=== PATIENT | male | born 1970 | race African-American/Black ===

== ENCOUNTER 2023-07-07 17:19 | Inpatient (IN) | payer OTHER ==
[2023-07-07 18:29] VITALS: BMI 18.8
[2023-07-07] MEDS ORDERED: BENZONATATE 200 MG CAPSULE PO PRN (20:13)
[2023-07-07] MEDS ORDERED: ACETAMINOPHEN 325 MG TABLET (FP) PO PRN (20:13)
[2023-07-07] MEDS ORDERED: guaiFENesin 600 MG TABLET.ER (FP) PO PRN (20:13)
[2023-07-07] MEDS ORDERED: MAGNESIUM HYDROX 2400MG/30ML ORAL SUSPENSION 30 ML CUP PO PRN (20:13)
[2023-07-07] MEDS ORDERED: POLYETHYLENE GLYCOL (HEALTHYLAX) 3350 17 GM PACKET PO PRN (20:13)
[2023-07-07] MEDS ORDERED: P-EPHED 60MG/TRIPROLIDI 2.5MG TABLET PO PRN (20:13)
[2023-07-07] MEDS ORDERED: BISMUTH SUBSALICYLATE 524 MG/30 ML PO PRN (20:13)
[2023-07-07] MEDS ORDERED: BENZOCAINE/MENTHOL (CHLORASEPTIC ) LOZENGE MM PRN (20:13)
[2023-07-07] MEDS ORDERED: MAG HYDROX/AL HYDROX/SIMETH 30 ML UNIT-DOSE CUP PO PRN (20:13)
[2023-07-07] MEDS ORDERED: IBUPROFEN 400 MG TABLET (FP) PO PRN (20:13)
[2023-07-07] MEDS ORDERED: LOPERAMIDE HCL 2 MG CAPSULE PO PRN (20:13)
[2023-07-07] MEDS ORDERED: ONDANSETRON *ODT* 4 MG TABLET SL PRN (20:13)
[2023-07-07] MEDS ORDERED: DICYCLOMINE HCL 10 MG CAPSULE PO PRN (20:13)
[2023-07-07] MEDS ORDERED: IBUPROFEN 600 MG TABLET (FP) PO PRN (20:13)
[2023-07-07] MEDS: diazePAM 5 MG TABLET PO SCH (22:55)
[2023-07-07] MEDS: MELATONIN 5 MG TABLETS PO SCH (22:55)
[2023-07-07] MEDS: METHOCARBAMOL 500 MG TABLET PO PRN (22:55)
[2023-07-07] MEDS: THIAMINE HCL 100 MG TABLET (FP) PO SCH (22:56)
[2023-07-08] MEDS: PRENATAL VITAMINS W/ FOLIC ACID TABLET (FP) PO SCH (10:13)
[2023-07-08 11:49] LABS: HEMATOCRIT 35.4 % (35.4-49); HEMOGLOBIN 11.9 GM/dL (11.7-16.9); MCH 32.8 pg (25.7-33.7); MCHC 33.6 g/dl (32.0-35.9); MEAN CELL VOLUME 97.7 fl (80-96); MEAN PLT VOLUME 7.9 fl (7.5-11.1); PLATELET COUNT 169 10^3/uL (134-434); RBC 3.63 M/mm3 (4.00-5.60); RDW 14.4 % (11.9-15.9); WHITE BLOOD COUNT 4.8 K/mm3 (4.0-10.0)
[2023-07-08 11:52] LABS: POTASSIUM 3.6 mmol/L (3.5-5.1)
[2023-07-08 12:01] LABS: ALBUMIN 2.9 g/dl (3.4-5.0); BLOOD UREA NITROGEN 9.5 mg/dL (7-18); CALCIUM 8.8 mg/dL (8.5-10.1)
[2023-07-08 12:04] LABS: CREATININE 0.8 mg/dL (0.55-1.3)
[2023-07-08 12:06] LABS: BILIRUBIN,TOTAL 0.5 mg/dL (0.2-1); TOT PROT 8.9 g/dl (6.4-8.2)
[2023-07-08] MEDS ORDERED: PATIENT'S OWN MEDICATION (NON-FORMULARY) (Bictegrav/Emtricit/Tenofov Ala [Biktarvy 30-120- PO SCH (12:15)
[2023-07-08] MEDS: PATIENT'S OWN MEDICATION (NON-FORMULARY) (Bictegrav/Emtricit/Tenofov Ala [Biktarvy 30-120- PO SCH (13:27)
[2023-07-08] MEDS: BICTEGRAV/EMTRICIT/TENOFOV (BIKTARVY) 50-200-25 MG TABLET PO SCH (13:29)
[2023-07-08] MEDS: diazePAM 5 MG TABLET PO PRN (14:05)
[2023-07-08] MEDS: amLODIPine BESYLATE 5 MG TABLET (FP) PO SCH (15:38)
[2023-07-09] MEDS: diazePAM 5 MG TABLET PO SCH (05:57)
[2023-07-10] MEDS: diazePAM 5 MG TABLET PO SCH (05:45)
[2023-07-10 13:39] LABS: BLOOD UREA NITROGEN 11.3 mg/dL (7-18); CALCIUM 9.4 mg/dL (8.5-10.1)
[2023-07-10 13:42] LABS: CREATININE 0.7 mg/dL (0.55-1.3)
[2023-07-10 13:44] LABS: BILIRUBIN,TOTAL 0.4 mg/dL (0.2-1)
[2023-07-11] MEDS: diazePAM 5 MG TABLET PO ONE (06:04)
[2023-07-11 07:44] VITALS: RESP 16
[2023-07-11 09:24] VITALS: BP 143/89; PULSE 89; TEMP 97.5
== END 2023-07-11 10:31 | disposition home or self-care (01) | DRG 775 ==
LOC: YASAS 17:19 → Y6N 22:12
PROVIDERS: ADMIT Allergy & Immunology; ATTEND Surgery
PROC: HZ2ZZZZ Detoxification Services for Substance Abuse Treatment (ICD-10-PCS; principal; 2023-07-07)
DX: F10.230 Alcohol dependence with withdrawal, uncomplicated (principal); Z21 Asymptomatic human immunodeficiency virus [HIV] infection status; I10 Essential (primary) hypertension; R26.89 Other abnormalities of gait and mobility
CPT/HCPCS: 36415; 80053; 80305; 82947; 83036; 85027; 86780; 87635; 87811; 93005; 93010

== ENCOUNTER 2024-08-13 10:05 | Inpatient (IN) | payer OTHER ==
[2024-08-13 10:37] VITALS: BMI 18.1
[2024-08-13] MEDS ORDERED: ACETAMINOPHEN 325 MG TABLET (FP) PO PRN (11:10)
[2024-08-13] MEDS ORDERED: BENZONATATE 200 MG CAPSULE PO PRN (11:10)
[2024-08-13] MEDS ORDERED: POLYETHYLENE GLYCOL (HEALTHYLAX) 3350 17 GM PACKET PO PRN (11:10)
[2024-08-13] MEDS ORDERED: IBUPROFEN 600 MG TABLET (FP) PO PRN (11:10)
[2024-08-13] MEDS ORDERED: BENZOCAINE/MENTHOL (CHLORASEPTIC ) LOZENGE MM PRN (11:10)
[2024-08-13] MEDS ORDERED: hydrOXYzine PAMOATE 25 MG CAPSULE (FP) PO PRN (11:10)
[2024-08-13] MEDS ORDERED: NALOXONE (NARCAN) HCL 4 MG/0.1 ML SPRAY NS PRN (11:10)
[2024-08-13] MEDS ORDERED: LOPERAMIDE HCL 2 MG CAPSULE PO PRN (11:10)
[2024-08-13] MEDS ORDERED: MAGNESIUM HYDROX 2400MG/30ML ORAL SUSPENSION 30 ML CUP PO PRN (11:10)
[2024-08-13] MEDS ORDERED: IBUPROFEN 400 MG TABLET (FP) PO PRN (11:10)
[2024-08-13] MEDS ORDERED: BISMUTH SUBSALICYLATE 524 MG/30 ML PO PRN (11:10)
[2024-08-13] MEDS ORDERED: MAG HYDROX/AL HYDROX/SIMETH 30 ML UNIT-DOSE CUP PO PRN (11:10)
[2024-08-13] MEDS ORDERED: DICYCLOMINE HCL 10 MG CAPSULE PO PRN (11:10)
[2024-08-13] MEDS ORDERED: guaiFENesin 600 MG TABLET.ER (FP) PO PRN (11:10)
[2024-08-13] MEDS ORDERED: propRANOLol HCL 10 MG TABLET ONE (11:20)
[2024-08-13] MEDS: propRANOLol HCL 10 MG TABLET PO ONE (11:29)
[2024-08-13] MEDS ORDERED: LACTULOSE 20 GM/30 ML UDC (FOR ORAL USE ONLY) PO PRN (11:48)
[2024-08-13] MEDS: diazePAM 5 MG TABLET PO PRN (17:52)
[2024-08-13] MEDS: ONDANSETRON *ODT* 4 MG TABLET SL PRN (17:56)
[2024-08-13] MEDS: diazePAM 5 MG TABLET PO SCH (17:57)
[2024-08-13] MEDS: METHOCARBAMOL 500 MG TABLET PO PRN (22:02)
[2024-08-13] MEDS: MELATONIN 5 MG TABLETS PO SCH (22:02)
[2024-08-13] MEDS: THIAMINE 100 MG TABLET PO SCH (22:02)
[2024-08-14] MEDS: PRENATAL VITAMINS W/ FOLIC ACID TABLET (FP) PO SCH (10:31)
[2024-08-14] MEDS: amLODIPine BESYLATE 5 MG TABLET (FP) PO SCH (10:31)
[2024-08-14] MEDS: BICTEGRAV/EMTRICIT/TENOFOV (BIKTARVY) 50-200-25 MG TABLET PO SCH (10:33)
[2024-08-14 10:34] LABS: HEMATOCRIT 33.9 % (40.1-51.0); MCHC 35.4 g/dl (32.3-36.5); MEAN CELL VOLUME 101.8 fl (79.0-92.2); MEAN PLT VOLUME 11.7 fl (9.4-12.4); PLATELET COUNT 47 x10^3/uL (163-337); RDW 15.3 % (12.2-16.1)
[2024-08-14 10:38] LABS: POTASSIUM 3.9 mmol/L (3.5-5.1)
[2024-08-14 10:40] LABS: CALCIUM 9.1 mg/dL (8.5-10.1)
[2024-08-14 10:41] LABS: BLOOD UREA NITROGEN 9.1 mg/dL (7-18)
[2024-08-14 10:44] LABS: CREATININE 0.8 mg/dL (0.55-1.3)
[2024-08-14 10:45] LABS: BILIRUBIN,TOTAL 0.9 mg/dL (0.2-1); TOT PROT 9.4 g/dl (6.4-8.2)
[2024-08-14] MEDS: PNEUMOC 20-VAL CONJ-DIP CRM/PF 0.5 ML SYRINGE IM ONE (12:43)
[2024-08-14] MEDS: LOSARTAN POTASSIUM 25 MG TABLET PO SCH (15:18)
[2024-08-14] MEDS: MELATONIN 5 MG TABLETS PO SCH (22:35)
[2024-08-15] MEDS: diazePAM 5 MG TABLET PO SCH (06:10)
[2024-08-16] MEDS: diazePAM 5 MG TABLET PO SCH (05:36)
[2024-08-16] MEDS: NALTREXONE HCL 50 MG TABLET PO ONE (13:11)
[2024-08-16] MEDS ORDERED: ACAMPROSATE CALCIUM 333 MG TABLET.DR PO SCH (14:00)
[2024-08-16] MEDS: diazePAM 5 MG TABLET PO PRN (14:17)
[2024-08-17] MEDS: diazePAM 5 MG TABLET PO ONE (06:35)
[2024-08-17] MEDS: NALTREXONE HCL 50 MG TABLET PO SCH (10:30)
[2024-08-17 12:32] VITALS: BP 120/91; PULSE 99; RESP 18; TEMP 97.7
[2024-08-18] MEDS ORDERED: diazePAM 5 MG TABLET PO ONE (06:00)
== END 2024-08-17 11:55 | disposition home or self-care (01) | DRG 774 ==
LOC: YASAS 10:05 → Y6N 11:21
PROVIDERS: ADMIT Allergy & Immunology; ATTEND Allergy & Immunology
PROC: HZ2ZZZZ Detoxification Services for Substance Abuse Treatment (ICD-10-PCS; principal; 2024-08-13)
DX: F10.230 Alcohol dependence with withdrawal, uncomplicated (principal); F14.20 Cocaine dependence, uncomplicated; Z21 Asymptomatic human immunodeficiency virus [HIV] infection status; I10 Essential (primary) hypertension; R63.6 Underweight; Z68.1 Body mass index [BMI] 19.9 or less, adult; R26.89 Other abnormalities of gait and mobility; Z99.89 Dependence on other enabling machines and devices; R74.01 Elevation of levels of liver transaminase levels; R25.1 Tremor, unspecified
CPT/HCPCS: 36415; 71045-TC-FY; 80053; 80305; 80307; 84450; 85027; 86780; 90677; Q0162

== ENCOUNTER 2025-01-18 17:54 | Emergency (ER) | payer OTHER ==
[2025-01-18] MEDS ORDERED: ACETAMINOPHEN INJECTION 100 ML ONE (18:44)
[2025-01-18 18:45] LABS: EOSINOPHILS # 0.37 x10^3/uL (0.04-0.54)
[2025-01-18 18:47] LABS: ABSOLUTE IMMATURE GRANULOCYTES 0.03 x10^3/uL (0.0-0.031); BASOPHILS # 0.04 x10^3/uL (0.01-0.08); EOSINOPHIL % 4.2 % (0.8-7.0); IMMATURE PLATELET FRACTION # 5.30 x10^3/uL; MCHC 33.4 g/dl (32.3-36.5); MEAN CELL VOLUME 99.7 fl (79.0-92.2); MEAN PLT VOLUME 11.4 fl (9.4-12.4); MONOCYTE # 0.77 x10^3/uL (0.30-0.82); MONOCYTE % 8.7 % (5.3-12.2); RDW 16.2 % (12.2-16.1)
[2025-01-18 18:53] LABS: BG HCT 36.0 % (35.4-49); INR 1.31 (0.83-1.09); PROTHROMBIN TIME (PATIENT) 14.3 SEC (9.7-13.0); VENOUS BASE EXCESS 4.3 mmol/L (-2-2); VENOUS O2 SATURATION 27.0 % (70-80); VENOUS PCO2 45.1 mmHg (38-52); VENOUS PH 7.429 (7.310-7.410)
[2025-01-18 18:56] LABS: ACTIVATED PTT 36.0 SECONDS (25.2-36.5)
[2025-01-18 18:58] VITALS: BMI 18.8
[2025-01-18] MEDS: ACETAMINOPHEN 1000 MG/100 ML BAG IVPB ONE (18:59)
[2025-01-18] MEDS ORDERED: diazePAM CARPU-JECT 10 MG/2 ML DISP.SYRIN ONE (19:17)
[2025-01-18] MEDS: SODIUM CHLORIDE 0.9% 500 ML INFUS.BAG IV ONE (19:21)
[2025-01-18] MEDS: diazePAM CARPU-JECT 10 MG/2 ML DISP.SYRIN IVPUSH ONE (19:21)
[2025-01-18 19:41] LABS: GLUCOSE,RANDOM 83.0 mg/dL (74-106); TOT PROT 10.0 g/dl (6.4-8.2)
[2025-01-18 19:42] LABS: CO2 25.0 mmol/L (21-32)
[2025-01-18 19:43] LABS: ALK PHOS 126.0 U/L (40-150)
[2025-01-18 19:46] LABS: SGPT/ALT 103.0 U/L (0-55)
[2025-01-18 19:47] LABS: CREATININE 0.92 mg/dL (0.55-1.3); SGOT/AST 176.0 U/L (5-34)
[2025-01-18] MEDS ORDERED: PIPERACILLIN/TAZOB 3.375 GM 3.375 GM/50 ML BAG IVPB ONE (19:52)
[2025-01-18] MEDS ORDERED: PIPERACILLIN/TAZOB 4.5 GM 4.5 GM/100 ML BAG IVPB ONE (19:55)
[2025-01-18] MEDS: PIPERACILLIN/TAZOB 4.5 GM 4.5 GM in DEXTROSE 5%-WATER 100 ML IVPB ONE (19:57)
[2025-01-18] MEDS ORDERED: VANCOMYCIN/WATER 1250 MG 1,250 MG/250 ML BAG IVPB ONE (21:50)
[2025-01-18] MEDS: VANCOMYCIN/WATER 1250 MG 1,250 MG/250 ML BAG IVPB ONE (22:01)
[2025-01-18 22:37] LABS: URINE APPEARANCE CLEAR; URINE BILIRUBIN NEGATIVE (NEGATIVE); URINE COLOR YELLOW; URINE GLUCOSE (UA) NEGATIVE (NEGATIVE); URINE KETONE NEGATIVE (NEGATIVE); URINE LEUK ESTERASE NEGATIVE (NEGATIVE); URINE NITRITE NEGATIVE (NEGATIVE); URINE PROTEIN NEGATIVE (NEGATIVE); URINE UROBILINOGEN 2.0 mg/dL (0.2-1.0)
[2025-01-19 01:18] VITALS: TEMP 99
[2025-01-19] MEDS ORDERED: diazePAM CARPU-JECT 10 MG/2 ML DISP.SYRIN ONE (01:27)
[2025-01-19] MEDS: diazePAM CARPU-JECT 10 MG/2 ML DISP.SYRIN IVPUSH ONE (01:39)
[2025-01-19 01:48] VITALS: BP 122/81
[2025-01-19 23:36] VITALS: PULSE 83; RESP 18
== END 2025-01-19 01:59 | disposition home or self-care (01) ==
LOC: JER 17:54
PROC: 3E03329 Introduction of Other Anti-infective into Peripheral Vein, Percutaneous Approach (ICD-10-PCS; principal; 2025-01-18)
PROC: 3E03329 Introduction of Other Anti-infective into Peripheral Vein, Percutaneous Approach (ICD-10-PCS; 2025-01-18)
PROC: 3E033NZ Introduction of Analgesics, Hypnotics, Sedatives into Peripheral Vein, Percutaneous Approach (ICD-10-PCS; 2025-01-18)
PROC: 3E033GC Introduction of Other Therapeutic Substance into Peripheral Vein, Percutaneous Approach (ICD-10-PCS; 2025-01-18)
PROC: 3E033GC Introduction of Other Therapeutic Substance into Peripheral Vein, Percutaneous Approach (ICD-10-PCS; 2025-01-19)
DX: R05.1 Acute cough (principal); R50.9 Fever, unspecified; R53.81 Other malaise
CPT/HCPCS: 36415; 70450-TC; 71045-TC-FY; 80053; 81003; 82803; 83605; 84484; 85025; 85610; 85730; 86850; 86900; 86901; 87040; 87086; 87637-QW; 93005; 93010; 99285-25